=== PATIENT | female | born 1980 | race Caucasian/White ===

== ENCOUNTER 2016-09-03 00:45 | Inpatient (IN) | payer BC ==
--- NOTE | ~2016-09-03 | OR ---
Unit #: [id number] #: [id number] Patient: ROCÍO WARD [id number] [address] [address] [id number] I MR#: [id number] NAME: ROCÍO WARD ROOM: 463 Date of Procedure: 09/04/2016 Admission Date: 09/03/2016 Surgeon: Michael Kingsley M.D. : 1980 Attending Physician: Mansoor Queen M.D. Primary Care Physician: Lewis Aragon M.D. OPERATIVE REPORT JOB NOTE: CC: HIPS PHYSICIAN PREOPERATIVE DIAGNOSES Epigastric and postprandial pain and nausea. POSTOPERATIVE DIAGNOSES Epigastric and postprandial pain and nausea. PROCEDURES PERFORMED 1. Esophagogastroduodenoscopy. 2. Biopsy of antrum for Helicobacter pylori testing. ANESTHESIA Monitored anesthesia care. FINDINGS The patient was found to have mild gastritis, mild distal esophagitis, and a hiatal hernia. SPECIMENS Sent to pathology. COMPLICATIONS None apparent. CONDITION The patient tolerated the procedure well. INDICATIONS FOR PROCEDURE The patient is a 36-year-old female, who presents at this time with epigastric pain that is postprandial and associated with nausea. She also has right CVA tenderness. She had a negative HIDA CCK study and a negative CT scan of the abdomen and pelvis other than a mildly dilated right ureter and some mild inflammation of her right kidney. She presents at this time for evaluation by upper endoscopy to rule out an upper GI source or possibly even ulcer disease. DESCRIPTION OF PROCEDURE After obtaining informed consent, the patient was brought to the endoscopy suite and after adequate monitored anesthesia care, had the endoscope placed through the mouth into the upper esophagus under direct vision. It was advanced to the second portion of the duodenum without difficulty with Unit #: [id number] #: [id number] Patient: ROCÍO WARD the lumen always in view. The duodenum was within normal limits as was the duodenal bulb. The pylorus opened normally. There was some mild distal gastritis present and a biopsy was obtained for Helicobacter pylori testing. On retroflexion back to the GE junction, the patient was found to have a small to medium sized hiatal hernia, but no other abnormalities were found in the proximal third, middle third, or incisura. On pulling back above the GE junction, there was some mild distal esophagitis, but no stenosis, stricture, or neoplasm seen. The remaining portion of the esophagus was within normal limits. Laryngeal structures were grossly normal as viewed from above. The patient went from the endoscopy suite to recovery area in stable condition. RECOMMENDATIONS Resume preop orders and medications. We will check an ultrasound of the gallbladder and ultrasound of the right kidney. We have discussed with Dr. Clark of Urology that she may need, per his judgment, a cystoscopy and retrograde study of the right ureter. We will check an ultrasound of the gallbladder as well to rule out cholelithiasis as we had not been able to find an ultrasound gallbladder study at [facility] or in the DR system. Dictated by... Michael Kingsley M.D. SOILAG/modl TD: 09/05/2016 01:19 JOB #: [id number] CC: [facility] Amandeep Clark M.D. OPERATIVE REPORT Page 1 of 1 X Michael Kingsley MD X PROCEDURE OPERATIVE NOTE
--- NOTE | ~2016-09-03 | CO ---
Unit #: [id number] #: [id number] Patient: ROCÍO WARD [id number] [address] [address] [id number] I MR#: [id number] NAME: ROCÍO WARD ROOM: 463 Age: 36 Sex: F Admission Date: 09/03/2016 : 1980 Attending Physician: Mansoor Queen M.D. Primary Care Physician: Lewis Aragon M.D. Consultation Date: 09/03/2016 CONSULTATION REPORT CHIEF COMPLAINT Right flank pain. HISTORY OF PRESENT ILLNESS Ms. Ward is a woman transferred in from another facility. The patient with some right flank pain. CT scan obtained shows some right dilated ureter. No stone in the ureter or kidney. The appearance is that she maybe have passed the stone. The patient describes the pain as sharp, intermittent, has been going on for few weeks. More severe lately, worse with eating and drinking, better with pain medication. No fever or chills. No dysuria, no gross hematuria. The patient denies history of stones. Currently, she is better. PAST MEDICAL HISTORY Anxiety, GERD, hysterectomy, D and C, . MEDICATIONS Zofran, Vistaril, Trintellix, Prilosec, Flexeril. FAMILY HISTORY Negative. SOCIAL HISTORY Drinks socially. Also positive for marijuana and for smoking cigarettes. PHYSICAL EXAMINATION VITAL SIGNS: She is afebrile. Vital signs are stable. ABDOMEN: Soft. There was no rebounding. She has mild right CVA tenderness. HEENT: Eyes equal. NECK: Supple. PULMONARY: Benign. CARDIAC: Benign. MUSCULOSKELETAL: No clubbing, cyanosis, or edema. NEUROLOGIC: Cranial nerves 2 through 12 intact. REVIEW OF SYSTEMS Negative for 10 systems except positive for mild right flank pain, which is better. No nausea. DIAGNOSTIC STUDIES LABORATORY RESULTS: Her creatinine is 0.7. White count is 6.4. ASSESSMENT Unit #: [id number] #: [id number] Patient: ROCÍO WARD Dilated ureter and no signs of obstruction. The patient may have passed a stone. She is feeling better. She has a HIDA scan, which was performed. She has been evaluated by general surgery also for a calcification within the appendix. Since she does not have any obvious signs of obstruction, no need for stent at this time. We can follow along loosely. I explained to the patient and her family member that if she starts having more pain on the right, again we could evaluate her with a different imaging study, cystoscopy, retrograde pyelogram, or another CT scan. Thank you for the referral. Dictated by... uGs Govea M.D. MADDIE/mark TD: 09/04/2016 03:13 JOB #: [id number] CONSULTATION REPORT Page 1 of 1 X Gus Govea MD X CONSULTATION REPORT
--- NOTE | ~2016-09-03 | CO ---
Unit #: [id number] #: [id number] Patient: ROCÍO WARD [id number] [address] [place], [place] [address] [id number] I MR#: [id number] NAME: ROCÍO WARD ROOM: 463 Age: 36 Sex: F Admission Date: 09/03/2016 : 1980 Attending Physician: Mansoor Queen M.D. Primary Care Physician: Lewis Aragon M.D. Consultation Date: 09/03/2016 CONSULTATION REPORT REVISED REPORT CHIEF COMPLAINT Right upper quadrant pain. HISTORY OF PRESENT ILLNESS This is a 36-year-old lady, who has had right upper quadrant pain. This has been postprandial with nausea and vomiting for the last several weeks. She was scheduled for an outpatient HIDA scan in a couple of days. She had a CT scan at [facility] that showed an appendicolith and right hydronephrosis, and was transferred here for surgical and evaluation. ALLERGIES She has no known drug allergies. MEDICATIONS Her medications include Flexeril, Prilosec, Trintellix, Vistaril, and Zofran. PAST SURGICAL HISTORY She has had hysterectomy, D and C, x2. FAMILY HISTORY Negative for cancer. SOCIAL HISTORY She uses alcohol occasionally. REVIEW OF SYSTEMS Negative for weight loss, fevers or jaundice, and is otherwise as above. PHYSICAL EXAMINATION VITAL SIGNS: Please refer to the nurse's notes for latest list of vitals. GENERAL: She is in no acute distress. HEENT: Pupils are equal and reactive to light and accommodation, and her extraocular muscles are intact. NECK: Without masses or bruits. LUNGS: Show good breath sounds bilaterally with equal air exchange. CARDIAC: Shows regular rate and rhythm without murmur. ABDOMEN: Soft and nondistended. She has mild tenderness in the right upper quadrant to deep palpation. There are no hernias. EXTREMITIES: Without edema or cyanosis. NEUROLOGIC: She is alert and oriented. There are no focal deficits. Unit #: [id number] #: [id number] Patient: ROCÍO WARD DIAGNOSTIC STUDIES LABORATORY RESULTS: A first set of labs from this facility are pending at this time. IMPRESSION AND PLAN Clinically, she has chronic cholecystitis. I talked about proceeding with HIDA scan. Apparently, she had an outpatient ultrasound that was normal several days ago. Certainly, if that test is normal, she may need to have upper endoscopy. We also wait to see what Urology says about her right hydronephrosis, which could account for some of her symptoms as well. Further recommendations are to follow. Dictated by... Mahesh Galeana III, M.D. VCL/mark TD: 09/05/2016 01:15 JOB #: [id number] CONSULTATION REPORT Page 1 of 1 X Mahesh Galeana III, MD CONSULTATION REPORT
--- NOTE | ~2016-09-03 | HP ---
Unit #: [id number] #: [id number] Patient: ROCÍO WARD [id number] [address] [place], [place] [address] [id number] I MR#: [id number] NAME: ROCÍO WARD ROOM: 55 Age: 36 Sex: F Admission Date: 09/03/2016 : 1980 Attending Physician: Mansoor Queen M.D. Primary Care Physician: Lewis Aragon M.D. HISTORY AND PHYSICAL CHIEF COMPLAINT Abdominal pain. HISTORY OF PRESENT ILLNESS Patient, basically, is a 36-year-old female who presented with a complaint of nausea, vomiting, right flank pain, abdominal pain, found to have hydronephrosis and a stone in the appendix and patient has been having symptoms for the last 2-3 months and getting worse. I am seeing the patient at the bedside. Denies any nausea, vomiting, or diarrhea. REVIEW OF SYSTEMS Positive pallor, no edema, no cyanosis, and no jaundice and rest as per history of present illness. Rest of 12-point review of systems has been reviewed and is negative. PHYSICAL EXAMINATION VITAL SIGNS: Temperature currently is 98, pulse 67, respirations 12, and blood pressure is 130/70. NEUROLOGIC: Awake, alert, and oriented. No neuro deficit. HEENT: PERRLA. EOMI. NECK: Supple. No JVD. CHEST: Bilateral air entry. Bilateral mild rhonchi. GI: Nontender and soft. Bowel sounds positive. EXTREMITIES: No edema. SKIN: No rash. No ulcer. LYMPHATIC: No lymphadenopathy. DIAGNOSTIC STUDIES Labs and imaging have been reviewed. PAST MEDICAL HISTORY Gastroesophageal reflux disease. SOCIAL HISTORY Nonsmoker. No alcohol. No drug abuse. FAMILY HISTORY None as per patient. ASSESSMENT AND PLAN 1. Right-sided hydronephrosis. 2. Appendix stone. Unit #: [id number] #: [id number] Patient: ROCÍO WARD 3. Dehydration. Plan is to continue IV fluids, IV antibiotics, and urology and general surgery consultations. Patient will be closely monitored. Please see orders for detailed plan. Dictated by Sb Akbar/guilherme TD: 09/03/2016 07:38 JOB #: [id number] HISTORY AND PHYSICAL Page 1 of 1 X Mansoor Queen MD HISTORY AND PHYSICAL
--- NOTE | ~2016-09-03 | CO ---
Unit #: [id number] #: [id number] Patient: ROCÍO WARD [id number] [address] [address] [id number] I MR#: [id number] NAME: ROCÍO WARD ROOM: 46 Age: 36 Sex: F Admission Date: 09/03/2016 : 1980 Attending Physician: Mansoor Queen M.D. Primary Care Physician: Lewis Aragon M.D. CONSULTATION REPORT REASON FOR CONSULTATION Persistent nausea and vomiting. HISTORY OF PRESENTING ILLNESS The patient reports about a one month history of persistent nausea, vomiting with associated right flank pain. She went to the ER twice and to her primary care and then eventually returned to our ER and was admitted about four days ago. She initially had a Surgery consult which ruled out any gallbladder pathology as well as an EGD yesterday which showed mild gastritis as well as esophagitis. Urease is currently pending. The patient otherwise denies any pain. She does report marijuana use most days; however, her last use was some time last week. The patient reports no improvement with n.p.o. status. The patient had four episodes of emesis this morning despite p.r.n. Zofran and other antiemetics. PAST MEDICAL HISTORY Anxiety, GERD, hysterectomy, D and C, . SOCIAL HISTORY The patient drinks socially, smokes marijuana most days and also smokes cigarettes. FAMILY HISTORY Reviewed and noncontributory. HOME MEDICATIONS 1. Zofran. 2. Vistaril. 3. Trintellix. 4. Prilosec. 5. Flexeril. REVIEW OF SYSTEMS A complete 10-point review of systems was completed and negative except as mentioned in the HPI. PHYSICAL EXAMINATION GENERAL APPEARANCE: The patient is a pleasant 86-year-old female currently in no acute distress. VITAL SIGNS: Temperature 98.2. Pulse 86. Respiration 18. Blood pressure 122/81. HEENT: PERRLA. NECK: Supple. Unit #: [id number] #: [id number] Patient: ROCÍO WARD CARDIAC: S1, S2. LUNGS: Clear to auscultation. ABDOMEN: Soft, nontender, nondistended. Positive bowel sounds. NEUROLOGIC: The patient is alert, awake, oriented x3. DIAGNOSTIC STUDIES LABORATORY: BMP has been negative. No chemistry has been completed. White count 6.0, hemoglobin 12.3, hematocrit 37.0. IMAGING: Right upper quadrant ultrasound was completed on the and was negative. HIDA scan was completed on the and showed an ejection fraction of 86%. CT scan is currently pending. EGD completed by Dr. Kingsley yesterday showing mild gastritis, mild esophagitis as well as a hiatal hernia. ASSESSMENT AND PLAN 1. Persistent nausea and vomiting. Continue PPI therapy for now. We will await urease from previous EGD. We will await CT scan for further possible recommendations. We will begin Reglan prior to meals. 2. Right flank pain. Thank you for this interesting consult and we will continue to follow along. Dictated by... Karena Rosales A.P.R.N. for Sb Houston/alberto TD: 09/06/2016 08:08 JOB #: [id number] CONSULTATION REPORT Page 1 of 1 X X CONSULTATION REPORT
--- NOTE | ~2016-09-03 | CT3 ---
[facility] A Service of [facility] RADIOLOGY TEXT RESULTS PATIENT: ROCÍO WARD LOCATION: [facility] 463-01 : [birth year] UNIT #: [id number] AGE: [address]: Mansoor Queen MD SEX: F ORDER DR: [id number] [facility] [address] [facility]. [place], [place] [address] [id number] I MR#: [id number] Acc #: [id number] NAME: ROCÍO WARD : 1980 SEX: F STUDY DATE/TIME: 09/05/2016 15:39 UNIT: [facility] ROOM: [facility] STUDY DESCRIPTION: CT Abd and Pelv WWo Cont Attending Physician: Mansoor Queen M.D. Ordering Physician: Mansoor Queen M.D. Primary Care Physician: Lewis Aragon M.D. MEDICAL IMAGING REPORT This report is preliminary unless electronic signature is present EXAM Abdomen and pelvis CT with and without contrast with multiphase postcontrast evaluation of the kidneys. HISTORY Mild right-sided hydronephrosis noted on recent CT scan. 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 TECHNIQUE Axial imaging was obtained through the abdomen and pelvis with and without contrast with multiphase postcontrast evaluation of the kidneys. 100 mL of Isovue was used. This CT exam was performed with one or more of the following radiation dose reduction techniques: automatic exposure control, adjustment of mA and/or kV according to patient size, and iterative reconstruction. FINDINGS Precontrast scanning shows no evidence of nephrocalcinosis. An appendicolith is noted and it appears unchanged from the recent noncontrasted CT scan of 09/02/2016. Multiphase postcontrast scanning shows a normal appearance to the liver, spleen, and pancreas. No adrenal masses are seen. The enhancement pattern of the kidneys is symmetric. No hydronephrosis is noted on either side. Delayed images in the excretory phase show no intracaliceal filling defects or ureteral irregularity on either side. The right ureter is slightly larger than the left but still within normal limits. No filling defects are seen in the bladder. There is no evidence of retroperitoneal adenopathy or ascites and no distended bowel loops are seen. IMPRESSION Appendicolith again noted. Negative abdomen and pelvis CT otherwise. [facility] A Service of [facility] RADIOLOGY TEXT RESULTS PATIENT: ROCÍO WARD LOCATION: [place] [address] : [birth year] UNIT #: [id number] AGE: [address]: Mansoor Queen MD SEX: F ORDER DR: Normal appearance to both kidneys. Normal collecting system on both sides. Dictated by... Amandeep Morales M.D. THIS IS AN ELECTRONICALLY VERIFIED REPORT Amandeep Morales M.D. at 09/05/2016 10:17 PM ANICETO/celeste TD: 09/05/2016 17:27 JOB #: [id number] MEDICAL IMAGING REPORT Page 1 of 1 COPY
--- NOTE | ~2016-09-03 | CR80 ---
[facility] A Service of [facility] RADIOLOGY TEXT RESULTS PATIENT: ROCÍO WARD LOCATION: [place] [address] : [birth year] UNIT #: [id number] AGE: [address]: Mansoor Queen MD SEX: F ORDER DR: [id number] [place] [id number] [facility]. [place], [place] [address] [id number] I MR#: [id number] Acc #: [id number] NAME: ROCÍO WARD : 1980 SEX: F STUDY DATE/TIME: 09/05/2016 9:29 UNIT: [facility] ROOM: [facility] STUDY DESCRIPTION: CR Cystogram Min 3 Views SI Attending Physician: Mansoor Queen M.D. Ordering Physician: Amandeep Clark M.D. Primary Care Physician: Lewis Aragon M.D. MEDICAL IMAGING REPORT This report is preliminary unless electronic signature is present EXAM Cystogram. INDICATION Right-side of back and abdominal pain. Right hydronephrosis. Reflux nephropathy. TECHNIQUE Following placement of a Paige catheter, contrast was instilled into the bladder. AP, lateral, and bilateral oblique views of the bladder were obtained. FINDINGS There is no evidence of vesicoureteral reflux. Bladder contour is normal. No bladder filling defects. IMPRESSION 1. Negative cystogram. 2. Fluoroscopic time 0.5 minutes. 8 images acquired. Dictated by... Arsen Metz M.D. THIS IS AN ELECTRONICALLY VERIFIED REPORT Arsen Metz M.D. at 09/05/2016 4:13 PM C/celeste TD: 09/05/2016 13:42 JOB #: [id number] MEDICAL IMAGING REPORT [facility] A Service [facility] RADIOLOGY TEXT RESULTS PATIENT: ROCÍO WARD LOCATION: [place] [address] : [birth year] UNIT #: [id number] AGE: [address]: Mansoor Queen MD SEX: F ORDER DR: Page 1 of 1 COPY
--- NOTE | ~2016-09-03 | US67 ---
[facility] A Service of [facility] RADIOLOGY TEXT RESULTS PATIENT: ROCÍO WARD LOCATION: [facility] 463-01 : [birth year] UNIT #: [id number] AGE: [address]: Mansoor Queen MD SEX: F ORDER DR: [id number] [place] [address] [facility]. [place], [place] [address] [id number] I MR#: [id number] Acc #: [id number] NAME: ROCÍO WARD : 1980 SEX: F STUDY DATE/TIME: 09/04/2016 17:12 UNIT: [facility] ROOM: [facility] STUDY DESCRIPTION: US Gallbladder Attending Physician: Mansoor Queen M.D. Ordering Physician: Michael Kingsley M.D. Primary Care Physician: Lewis Aragon M.D. MEDICAL IMAGING REPORT This report is preliminary unless electronic signature is present EXAM Gallbladder ultrasound 09/04/2016 INDICATIONS 36-year-old female with right upper quadrant and right-sided back pain for 3 weeks. History of nausea and vomiting. Sonographic imaging of the gallbladder was performed. COMPARISON STUDIES No comparisons. Correlation is made with CT 09/02/2016 FINDINGS Visualized aspects of the pancreas are unremarkable. Portions were obscured by bowel gas and not seen or evaluated. Liver measures 15.3 cm long axis. There is no focal liver mass, ascites or intrahepatic ductal dilatation. The right kidney is nonobstructed and measures about 12 cm long axis. Mild prominence of the right renal pelvis which is nonspecific. Gallbladder sonographically unremarkable. No sonographic Johnson sign was described. Extrahepatic common bile duct measures between 1-2 mm. IMPRESSION Negative right upper quadrant ultrasound. Dictated by... Jase Galarza M.D. THIS IS AN ELECTRONICALLY VERIFIED REPORT Jase Galarza M.D. at 09/04/2016 7:54 PM Germania TD: 09/04/2016 18:28 [facility] A Service of [facility] RADIOLOGY TEXT RESULTS PATIENT: ROCÍO WARD LOCATION: [place] [address] : [birth year] UNIT #: [id number] AGE: [address]: Mansoor Queen MD SEX: F ORDER DR: JOB #: [id number] MEDICAL IMAGING REPORT Page 1 of 1 COPY
--- NOTE | ~2016-09-03 | NM22 ---
[facility] A Service of [facility] RADIOLOGY TEXT RESULTS PATIENT: ROCÍO WARD LOCATION: [place] [address] : [birth year] UNIT #: [id number] AGE: [address]: Mansoor Queen MD SEX: F ORDER DR: [id number] [facility] [address] [place], [place] [address] [id number] I MR#: [id number] Acc #: [id number] NAME: ROCÍO WARD : 1980 SEX: F STUDY DATE/TIME: 09/03/2016 12:52 UNIT: [facility] ROOM: 3 STUDY DESCRIPTION: NM Hepatobiliary W GB Pharm Attending Physician: Mansoor Queen M.D. Ordering Physician: Mahesh Galeana III, M.D. Primary Care Physician: Lewis Aargon M.D. MEDICAL IMAGING REPORT This report is preliminary unless electronic signature is present EXAM Hepatobiliary scan with Kinevac HISTORY Nausea and vomiting with back pain and stomach cramping for 3 weeks PROCEDURE Study performed with 5.58 mCi technetium 99-M Choletec followed by 1.4 mcg of Kinevac IV. FINDINGS There is prompt uptake by hepatocyte clearance from the blood pool, excretion of the biliary tree and filling of the gallbladder and small bowel. Following Kinevac administration, calculated gallbladder ejection fraction is 86%. IMPRESSION 1. Normal HIDA scan. Normal filling of the gallbladder no active disease small bowel. 2. Calculated gallbladder ejection fraction 86%. Dictated by... Magdy Hogan M.D. THIS IS AN ELECTRONICALLY VERIFIED REPORT Magdy Hogan M.D. at 09/05/2016 1:53 PM TEV/to [facility] A Service [facility] RADIOLOGY TEXT RESULTS PATIENT: ROCÍO WARD LOCATION: [place] [address] : [birth year] UNIT #: [id number] AGE: [address]: Mansoor Queen MD SEX: F ORDER DR: TD: 09/03/2016 17:00 JOB #: [id number] MEDICAL IMAGING REPORT Page 1 of 1 COPY
[2016-09-03] MEDS ORDERED: HYDROXYZINE HCL25 M1 PO (02:11)
[2016-09-03] MEDS ORDERED: CYCLOBENZAPRINE5 MG PO (02:13)
[2016-09-03] MEDS ORDERED: PAROXETINE HCL20 MG PO (02:14)
[2016-09-03] MEDS ORDERED: BRINTELLIX20 MG PO (02:18)
[2016-09-03] MEDS ORDERED: OMEPRAZOLE40 M1 PO (02:19)
[2016-09-03 09:08] LABS: HEMATOCRIT 39.7 % (35.0-45.0); HEMOGLOBIN 13.4 gm/dL (12.0-16.0); MEAN CORPUSCULAR HEMOGLOBIN 32.3 PG (28-34); MEAN CORPUSCULAR HGB CONC 33.6 g/dL (30-36); MEAN PLATELET VOLUME 7.2 FL (6.5-11.5); RED BLOOD COUNT 4.13 X10e (3.90-5.30); RED CELL DISTRIBUTION WIDTH 12.8 % (11.0-15.5); WHITE BLOOD COUNT 6.4 X10e3 (4.0-10.5)
[2016-09-03 09:35] LABS: BUN/CREATININE RATIO 15.71; CREATININE SERUM 0.7 mg/dL (0.6-1.4); GLOM FILT RATE Estimated 110.7 mL/min (>60); POTASSIUM 4.5 mmol/L (3.5-5.1)
[2016-09-04 03:08] LABS: HEMOGLOBIN 12.3 gm/dL (12.0-16.0); MEAN CELL VOLUME 95.4 FL (83-96); MEAN CORPUSCULAR HEMOGLOBIN 31.8 PG (28-34); MEAN CORPUSCULAR HGB CONC 33.3 g/dL (30-36); MEAN PLATELET VOLUME 7.4 FL (6.5-11.5); RED BLOOD COUNT 3.88 X10e (3.90-5.30); RED CELL DISTRIBUTION WIDTH 13.2 % (11.0-15.5)
[2016-09-04 03:34] LABS: BUN/CREATININE RATIO 13.33; CALCIUM SERUM 8.2 mg/dL (8.4-10.2); CREATININE SERUM 0.6 mg/dL (0.6-1.4); GLOM FILT RATE Estimated 116.4 mL/min (>60); POTASSIUM 3.5 mmol/L (3.5-5.1)
[2016-09-05 09:25] LABS: URINE APPEARANCE CLEAR; URINE BILIRUBIN NEG (NEG); URINE BLOOD NEG (NEG); URINE COLOR YELLOW; URINE GLUCOSE NEG (NEG); URINE KETONE NEG (NEG); URINE LEUKOCYTE ESTERASE NEG (NEG); URINE NITRATE NEG (NEG); URINE PROTEIN NEG (NEG); URINE SPECIFIC GRAVITY 1.022 (1.003-1.035)
[2016-09-06 03:56] LABS: BASOPHIL% 0.2 % (0-2.5); EOSINOPHIL# 0.1 X10e3 (0-0.7); EOSINOPHIL% 1.1 % (0.0-7.0); HEMATOCRIT 38.4 % (35.0-45.0); HEMOGLOBIN 13.1 gm/dL (12.0-16.0); LYMPHOCYTE# 1.6 X10e3 (1.0-3.5); LYMPHOCYTE% 30.7 % (17.0-45.0); MEAN CELL VOLUME 94.9 FL (83-96); MEAN CORPUSCULAR HEMOGLOBIN 32.3 PG (28-34); MEAN PLATELET VOLUME 7.6 FL (6.5-11.5); MONOCYTE# 0.6 X10e3 (0-1.0); MONOCYTE% 11.1 % (3.0-12.0); NEUTROPHIL% 56.9 % (40-75); PLATELET COUNT 226 X10e3 (140-420); RED BLOOD COUNT 4.05 X10e (3.90-5.30); RED CELL DISTRIBUTION WIDTH 12.5 % (11.0-15.5); WHITE BLOOD COUNT 5.2 X10e3 (4.0-10.5)
[2016-09-06 03:59] LABS: DIFF IND NO
[2016-09-06 04:21] LABS: ALBUMIN SERUM 3.9 g/dL (3.5-5.0); BILIRUBIN,TOTAL 0.4 mg/dL (0.2-2.0); BUN/CREATININE RATIO 15.71; CALCIUM SERUM 8.8 mg/dL (8.4-10.2); CREATININE SERUM 0.7 mg/dL (0.6-1.4); GLOM FILT RATE Estimated 110.7 mL/min (>60); POTASSIUM 3.9 mmol/L (3.5-5.1); PROTEIN TOTAL SERUM 7.1 g/dL (6.0-8.3)
[2016-09-06] MEDS ORDERED: PROTONIX PO (10:17)
[2016-09-06] MEDS ORDERED: BENTYL20 MG PO (10:20)
== END 2016-09-06 11:15 | disposition home or self-care (01) | DRG 392 ==
LOC: C5C 00:45 → C5B 01:01 → C4C 09-04 00:39
PROVIDERS: Internal Medicine; Surgery; Urology
PROC: 0DB78ZX Excision of Stomach, Pylorus, Via Natural or Artificial Opening Endoscopic, Diagnostic (ICD-10-PCS; principal; 2016-09-04 14:28)
DX: K29.70 Gastritis, unspecified, without bleeding (principal); N13.30 Unspecified hydronephrosis; K44.9 Diaphragmatic hernia without obstruction or gangrene; K20.9 Esophagitis, unspecified; K21.9 Gastro-esophageal reflux disease without esophagitis; F41.9 Anxiety disorder, unspecified; F17.210 Nicotine dependence, cigarettes, uncomplicated; K38.1 Appendicular concretions; K81.1 Chronic cholecystitis; N28.82 Megaloureter; Z90.710 Acquired absence of both cervix and uterus
CPT/HCPCS: 74178; 74430; 76705; 78227; 80048; 80053; 81003; 84703; 85025; 85027; 87077; 94760; A9537; C9113; J1650; J1956; J2250; J2405; J2765; J2805; Q9967

== ENCOUNTER 2016-09-09 08:43 | Emergency (ER) | payer BC ==
[~2016-09-09 08:43] MED LIST: BENTYL20 MG PO; BRINTELLIX20 MG PO; CYCLOBENZAPRINE5 MG PO; HYDROXYZINE HCL25 M1 PO; OMEPRAZOLE40 M1 PO; PAROXETINE HCL20 MG PO; PROTONIX PO
[2016-09-09 09:27] LABS: URINE SOURCE CLEAN CATCH
[2016-09-09 09:33] LABS: URINE APPEARANCE CLOUDY; URINE BLOOD NEG (NEG); URINE COLOR DK YELLOW; URINE GLUCOSE NEG (NEG); URINE KETONE TRACE (NEG); URINE LEUKOCYTE ESTERASE NEG (NEG); URINE NITRATE NEG (NEG); URINE PH 5.5 (5-8); URINE PROTEIN NEG (NEG); URINE SPECIFIC GRAVITY 1.025 (1.003-1.035)
[2016-09-09 09:37] LABS: CULTURE INDICATED? NO; URINE BILIRUBIN NEG (NEG)
[2016-09-09 09:51] LABS: AMPHETAMINE NEG (NEG); BARBITURATES NEG (NEG); BENZODIAZEPINES NEG (NEG); COCAINE NEG (NEG); MARIJUANA POS (NEG); OPIATES NEG (NEG); TRICYCLIC ANTIDEPRESSANTS POS (NEG); U METHADONE NEG (NEG)
== END 2016-09-09 10:34 | disposition home or self-care (01) ==
LOC: CED 08:43
PROVIDERS: Physician Assistant Medical
DX: K29.70 Gastritis, unspecified, without bleeding (principal); Z90.710 Acquired absence of both cervix and uterus
CPT/HCPCS: 80307; 81003; 96361; 96372; 96374; 96375; 99284; C9113; J1885; J2405; J2550